=== PATIENT | male | born 1985 | race Caucasian/White ===

== ENCOUNTER 2021-06-27 12:22 | Emergency (ER) | payer OTHER, SELFPAY | END 2021-06-27 14:03 | disposition home or self-care (01) | LOC: ERS 12:22 | DX: M25.512 Pain in left shoulder (principal); M25.562 Pain in left knee; V29.9XXA Motorcycle rider (driver) (passenger) injured in unspecified traffic accident, initial encounter; Y92.410 Unspecified street and highway as the place of occurrence of the external cause ==